=== PATIENT | male | born 1985 | race Two or more races ===

== ENCOUNTER 2021-09-27 20:51 | Emergency (ER) | payer MEDICAID ==
[~2021-09-27] VITALS: Ht 185.4 cm; Wt 91.0 kg
[2021-09-27 21:30] VITALS: BP 142/69
[2021-09-27] MEDS ORDERED: HYDROCODONE/ACETAMINOPHEN 5/325MG TABLET PO ONE (23:45)
[2021-09-28] MEDS ORDERED: HYDR-4001 MT (00:06)
[2021-09-28] MEDS ORDERED: IBUP-2030 MT (00:06)
== END 2021-09-28 01:18 | disposition home or self-care (01) ==
LOC: ER 20:51
DX: S52.561A Barton's fracture of right radius, initial encounter for closed fracture (principal); S52.291A Other fracture of shaft of right ulna, initial encounter for closed fracture; V00.131A Fall from skateboard, initial encounter; Y93.89 Activity, other specified; Y92.89 Other specified places as the place of occurrence of the external cause; Y99.8 Other external cause status
CPT/HCPCS: 72100; 73080; 99284